=== PATIENT | female | born 1960 | race Two or more races ===

== ENCOUNTER → 2025-02-04 | Outpatient (CLI) | payer MEDICARE, MEDICAID, SELFPAY ==
--- NOTE | 2025-02-04 08:30 | XR_ITS ---
Examination: Screening digital mammography, bilateral Computer aided detection 3-D breast Tomosynthesis, bilateral Date and time of exam: February 04, 2025 0824 hours Compared to mammograms dating to November 29, 2017 Indication: Screening Technique: Nonmagnified MLO, CC views of the breasts to been obtained, reconstructed from 3-D Tomosynthesis images. R2 computer aided detection program utilized for evaluation of suspicious masses and/or abnormal calcifications. 3-D Tomosynthesis images obtained. Findings: Scattered areas of fibroglandular density. Benign calcifications. No interval suspicious masses Impression: BI-RADS category II: Benign Findings. Recommend 1 year follow-up mammogram.
== END | disposition home or self-care (01) ==
PROVIDERS: PCP Physician Assistant; Referring Provider Physician Assistant; Visit Provider Physician Assistant
DX: Z12.31 Encounter for screening mammogram for malignant neoplasm of breast (principal); R92.323 Mammographic fibroglandular density, bilateral breasts; R92.1 Mammographic calcification found on diagnostic imaging of breast
CPT/HCPCS: 77063; 77067

== ENCOUNTER 2025-06-15 20:57 | Emergency (ER) | payer MEDICARE, MEDICAID, SELFPAY ==
[2025-06-15 21:47] VITALS: BP 172/90; PULSE 96; RESP 18; TEMP 36.7; O2SAT 95; BMI 30.9
--- NOTE | 2025-06-15 21:54 | XR_ITS ---
EXAMINATION: PA chest single view TECHNIQUE: Upright PA chest single view Date and time: June 15, 2025, 10:17 p.m., comparison September 01, 2011 INDICATIONS: Shortness of breath tonight. FINDINGS: Minor prominence cardiac contour Moderate vascular congestion. No lobar pneumonia. Moderate osteopenia IMPRESSION: Moderate vascular congestion
--- NOTE | 2025-06-15 21:54 | EKG_ITS ---
[facility] Test Date: 2025-06-15 Pat Name: ADRIANNA ELLIOTT Department: Room: - Gender: Female Continuous Crusher Operator: : [id number] Requested By: Oziel Davies Order Number: [id number] Reading MD: Oziel Davies Measurements Intervals [place] Rate: 99 P: 38 WV: 149 QRS: 189 QRSD: 85 T: 4 QT: 349 QTc: 449 Interpretive Statements SINUS RHYTHM WITH SINUS ARRHYTHMIA INDETERMINATE AXIS PATTERN CONSISTENT WITH PULMONARY DISEASE MODERATE T-WAVE ABNORMALITY, CONSIDER ANTERIOR ISCHEMIA [-0.1+ mV T-WAVE IN V3/V4] No previous ECG available for comparison /[id number]/S0/[id number].pdf
[2025-06-15 22:08] VITALS: BP 172/90; PULSE 96
[2025-06-15] MEDS: ONDANSETRON ODT 4 MG TABRAP PO (22:08)
[2025-06-15] MEDS: MG HYD/AL HYD/SIME (Maalox Reg) SUSP 30 ML UDC PO (22:08)
[2025-06-15 22:23] LABS: Basophils # (Auto) 0.0 Thou/mm3 (0.0-0.2); Basophils % (Auto) 0 % (0-2.5); Eosinophils # (Auto) 0.1 Thou/mm3 (0.0-0.5); Eosinophils % (Auto) 2 % (0-10); Hematocrit 43.2 % (36.0-46.0); Hemoglobin 14.0 g/dL (12.0-16.0); Immature Granulocytes Auto 0.02 Thou/mm3 (0.00-0.00); Lymphocytes # (Auto) 1.7 Thou/mm3 (1.0-4.8); Lymphocytes % (Auto) 22 % (10-50); Mean Corpuscular HGB Conc 32.4 g/dl (31.0-37.0); Mean Corpuscular Hemoglobin 27.7 pg (25.0-35.0); Mean Corpuscular Volume 86 fL (80-100); Monocytes # (Auto) 0.5 Thou/mm3 (0.0-0.8); Monocytes % (Auto) 7 % (0-12); Neutrophils # (Auto) 5.2 Thou/mm3 (1.8-7.7); Neutrophils % (Auto) 69 % (37-80); Nucleated Red Blood Cell # 0.00 Thou/mm3 (0.00-0.00); Nucleated Red Blood Cell % 0 /100 WBC (0); Platelet Count 213 Thou/mm3 (140-440); RDW Standard Deviation 41.2 fL (36.4-46.3); Red Blood Count 5.05 Miln/mm3 (4.00-5.20); White Blood Count 7.5 Thou/mm3 (3.6-11.0)
[2025-06-15 22:43] LABS: Alanine Aminotransferase 19 U/L (10-49); Albumin, Serum 4.5 gm/dL (3.4-4.8); Albumin/Globulin Ratio 1.6 (1.2-2.2); Alkaline Phosphatase 61 U/L (46-116); Anion Gap 9 (7-16); Aspartate Amino Transferase 22 U/L (0-34); BUN/Creatinine Ratio 16 Ratio (12-20); Bilirubin,Total 0.4 mg/dL (0.3-1.2); Blood Urea Nitrogen 16 mg/dL (9-23); Calcium 9.5 mg/dL (8.3-10.6); Calcium (Corrected) 9.5 mg/dL (8.5-10.1); Carbon Dioxide 28.2 mMol/L (20.0-31.0); Chloride 107 mMol/L (98-107); Creatinine (Component) 1.0 mg/dL (0.6-1.3); Estimated Creatinine Clearance 53.0 mL/min (>60); Globulin 2.9 gm/dL (2.3-3.5); Glucose 141 mg/dL (74-106); Osmolality,Calculated 290 (275-295); Potassium 3.6 mMol/L (3.4-5.1); Sodium 144 mMol/L (136-145); Total Protein 7.4 gm/dL (5.7-8.2); Troponin I < 0.020 ng/mL (0.0-0.045); eGFR > 60 See Note
[2025-06-15 23:00] LABS: Collection Type, Urine Clean Catch; RBC,Urine 0 /hpf (0-3); Squamous Epithelial Cell,Urine 0 /hpf (0-5)
[2025-06-15 23:07] LABS: Bilirubin,Urine Negative (Negative); Blood,Urine Negative (Negative); Clarity,Urine Clear (Clear/Hazy); Color,Urine Colorless (Lt Yel-Yel); Glucose, Urine Negative (Negative); Hyaline Casts,Urine < 1 /hpf (0-1); Ketones,Urine Negative (Negative); Leukocyte Esterase,Urine Negative (Negative); Nitrite,Urine Negative (Negative); PH,Urine 6.5 (5.0-7.0); Protein,Urine Negative (Neg - Trace); Specific Gravity,Urine 1.007 (1.001-1.035); Urobilinogen,Urine Negative mg/dL (0.0-1.0); WBC,Urine 1 /hpf (0-5)
--- NOTE | 2025-06-15 23:15 | PD.EDDIZZY ---
ED Dizzyness RME/HPI General Chief Complaint: Dizziness Stated Complaint: DIZZINESS Time Seen by Provider: 06/15/25 21:49 Source: patient Arrival date/time: 06/15/25 20:57 Mode of arrival: ambulatory Limitations: language barrier RME / HPI RME / HPI Narrative: This patient is a Lao-speaking only 64-year-old female who arrives to the ED today for evaluation of dizziness concerns with nausea over the past 4 hours. Patient states the symptoms came on quickly and have continued. At time of arrival, patient was hypertensive with a blood pressure of 172/90. Patient states a history of hypertension, but states that her blood pressure is usually well-controlled. Patient denies any fever. Patient denies any history of cardiac events or intrapulmonary issues. Related Data Previous Rx's ?Medication ?Instructions ?Recorded dicyclomine 20 mg tablet 20 mg PO BID #30 tabs 10/09/21 clonidine HCl 0.2 mg tablet 0.2 mg PO Q12H #10 tabs 06/15/25 ondansetron 4 mg disintegrating 4 mg PO Q6H PRN nausea and 06/15/25 tablet vomiting #10 tabs Allergies Allergy/AdvReac Type Severity Reaction Status Date / Time No Known Allergies Allergy Verified 06/15/25 20:59 Review of Systems Review of Systems Systems Reviewed: All systems reviewed, normal except as documented Past Medical History Past Medical History CARDIAC: Positive Hypertension; Negative Congestive Heart Failure RESPIRATORY: Negative Chronic Obstructive Pulmonary Disease (COPD) GENITOURINARY: Negative Renal Disease ENDOCRINE: Negative Diabetes Mellitus Type 1 or Diabetes Mellitus Type 2 Social History SMOKING STATUS: Never smoker ED Exam Narrative Physical exam: Patient appears to be in mild distress at time of evaluation. Patient did not look toxic. General Limitations: Present language barrier General appearance: Present alert Head Head exam: Present atraumatic and other (Called for an evaluation. No signs of trauma. No skull depressions or deformities.) Eye Eye exam: Present normal appearance, PERRL and EOMI ENT ENT exam: Present normal exam, normal oropharynx and mucous membranes moist Neck Neck exam: Present normal inspection, full ROM and trachea midline Chest Chest inspection: Present normal inspection and symmetric chest wall rise Respiratory Respiratory exam: Present normal lung sounds bilaterally Cardiovascular Cardiovascular exam: Present regular rate, normal rhythm and normal heart sounds Abdominal Exam Abdominal exam: Present soft and normal bowel sounds Extremities Exam Extremities exam: Present normal inspection and full ROM Back Exam Back exam: Present normal inspection and full ROM Neurological Exam Neurological exam: Present alert, oriented X3 and CN II-XII intact Psychiatric Psychiatric exam: Present normal affect and normal mood Skin Skin exam: Present warm, dry, intact and normal color Course Quality Measures none Orders Category Date Time Status EKG (ED ONLY) *Do not use* NOW Care 06/15/25 21:54 Completed EKG (ED Only) Stat Exams 06/15/25 21:54 Draft XR chest 1V portable Stat Exams 06/15/25 21:54 Completed CBC Stat Lab 06/15/25 22:10 Completed CMP [Comprehensive Metabolic Panel] Stat Lab 06/15/25 22:10 Completed Troponin I Stat Lab 06/15/25 22:10 Completed UA [Urinalysis] Stat Lab 06/15/25 22:43 Completed Ondansetron Odt [Zofran Odt] Med 06/15/25 21:53 Discontinued 4 mg PO X1 ONE cloNIDine HCL [Catapres] Med 06/15/25 21:53 Discontinued 0.2 mg PO X1 ONE mg Hyd/Al Hyd/Mason Susp [Maalox Susp] Med 06/15/25 21:53 Discontinued 30 ml PO X1 ONE As noted above Vital Signs Vital signs: Vital Signs Temperature 98.1 F 06/15/25 21:47 Pulse Rate 96 06/15/25 21:47 Respiratory Rate 18 06/15/25 21:47 Blood Pressure 172/90 H 06/15/25 21:47 Pulse Oximetry (%) 95 06/15/25 21:47 Oxygen Delivery Method Room Air 06/15/25 21:47 As noted above Dizziness MDM Narrative MDM Narrative:: Ultimately performed the ED were evaluated by me personally. Serum studies were unremarkable for any acute systemic concerns as well as urinalysis. Cardiac markers were unremarkable. EKG revealed a sinus rhythm with sinus arrhythmia. Patient pattern appears to be consistent with pulmonary disease. Chest x-ray reasonable minor prominence of the cardiac contour as well as moderate vascular congestion. No pneumonia noted. Patient's blood pressure returned in acceptable zone at time of discharge and patient states improvement of her dizziness symptoms. Advised patient follow-up with her primary care provider for discussions related to today's visit as well as discussions related to possible developing pulmonary issues. Patient data External records reviewed:: [facility] previous records Clinical information provided by:: patient Social determinants that could affect healthcare access:: none Patient has the following chronic illnesses:: Hypertension How is presenting disease/condition affected by chronic disease/condition?: exacerbated by Evaluation data The following diagnostics were reviewed and interpreted by me:: lab results, radiology exam(s) and EKG tracing(s) Lab and/or radiology exams considered but not ordered:: None Interpretation Summary: Hypertensive urgency Medications / Prescriptions Medications or Prescriptions considered but not ordered:: None Medication administrations:: Medication Administration History Discontinued Medications Al Hydrox/Mg Hydrox/Simethicone (Mg Hyd/Al Hyd/Mason (Maalox Reg) Susp 30 Ml Udc) 30 ml PO X1 ONE Stop: 06/15/25 21:54 Last Admin: 06/15/25 22:08 Dose: 30 ml Documented By: KATEYLNN Clonidine (Clonidine Hcl 0.1 Mg Tablet) 0.2 mg PO X1 ONE Stop: 06/15/25 21:54 Last Admin: 06/15/25 22:08 Dose: 0.2 mg Documented By: KATELYNN Ondansetron HCl (Ondansetron Odt 4 Mg Tabrap) 4 mg PO X1 ONE; Protocol Stop: 06/15/25 21:54 Last Admin: 06/15/25 22:08 Dose: 4 mg Documented By: KATELYNN As noted above Consultations Consultation(s) initiated? (list below): No Diagnosis Dizziness Differential Diagnosis: other (Hypertensive urgency, dizziness, intra ear concern, sepsis, electrolyte abnormality, acute coronary syndrome, [place]) Most likely diagnosis given after review of the tests above:: Hypertensive urgency Admission Indicated Admission indicated?: not indicated Explain why admission is indicated or not indicated:: Unwarranted Admission Request Was there a request for admission?: No Disposition Plan Disposition Plan: Discharge Discharge Attestation Discharge Attestation: The patient and all family members were given an opportunity to ask questions and understood the discharge instructions. Discharge instructions specifically effects, indications for sooner follow up or return to the emergency department, and the expected course of current diagnosis. Patient condition: Stable Discharge Plan Plan Patient Disposition: HOME (Self Care) Prescriptions/Referrals Prescriptions/Med Rec: New clonidine HCl 0.2 mg tablet 0.2 mg PO Q12H Qty: 10 0RF Rx Instructions: To be used if systolic pressure is above 160 or diastolic pressure is above 90 ondansetron 4 mg tablet,disintegrating 4 mg PO Q6H PRN (Reason: nausea and vomiting) Qty: 10 0RF No Action dicyclomine 20 mg tablet 20 mg PO BID Qty: 30 0RF Referrals: Sury Blood PA-C [Primary Care Provider, Family Practice] - In 1 week Problem List Clinical Impression: Hypertensive urgency Patient/Caregiver Discharge Instructions Education Materials: Hypertension Dc Additional Instructions: Advised patient utilize emergent medication as needed in addition, patient should follow-up with primary care provider for discussions related to today's visit as well as possible developing pulmonary issues. Print Language: Lao Stand Alone Forms: Emelina Award Info., Patient Portal Info Letter
[2025-06-15 23:20] VITALS: BP 149/75; PULSE 70; RESP 16; TEMP 36.8; O2SAT 95
== END 2025-06-15 23:32 | disposition home or self-care (01) ==
PROVIDERS: Physician Assistant; Emergency Provider Emergency Medicine; PCP Physician Assistant
DX: I16.0 Hypertensive urgency (principal); R09.89 Other specified symptoms and signs involving the circulatory and respiratory systems; I10 Essential (primary) hypertension; I49.8 Other specified cardiac arrhythmias; R11.2 Nausea with vomiting, unspecified
CPT/HCPCS: 36415; 71045; 80053; 81001; 84484; 85025; 93005; 99283; Q0162; A9270